=== PATIENT | female | born 1995 ===

== ENCOUNTER 2025-05-15 19:40 | Emergency (ER) | payer BC ==
[2025-05-15] MEDS: Diphtheria,Pertussis(Acell),Tetanus Vaccine 0.5 ML Syringe IM ONE (20:10)
[2025-05-15] MEDS: Fluorescein 1 MG Ophth Strip EYERT ONE (20:10)
== END 2025-05-15 20:31 | disposition home or self-care (01) ==
LOC: MW.ED 19:40
DX: S05.01XA Injury of conjunctiva and corneal abrasion without foreign body, right eye, initial encounter (principal); W26.8XXA Contact with other sharp object(s), not elsewhere classified, initial encounter
CPT/HCPCS: 90471; 90715; 99283; A9270; J3490